=== PATIENT | female | born 1955 | race Caucasian/White ===

== ENCOUNTER 2017-03-01 14:31 | Emergency (ER) | payer BC ==
[~2017-03-01 14:31] MED LIST: ALBU18HF IH; FERR325T72 PO; FEXO60TA25 PO; GLIM4TAB PO; METF850T2 PO; MULT-496 PO; OLME1TAB23 PO; PANT40TA3 PO; THYR60TA PO; ZAFI20TA11 PO
[2017-03-01] MEDS ORDERED: HYDROcodone/APAP 5/325MG 1 TAB TABLET PO ONE (15:15)
[2017-03-01] MEDS ORDERED: ONDANSETRON ODT 4 MG TAB.RAPDIS PO ONE (15:15)
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
[2017-03-01] MEDS ORDERED: CYCL-331 PO (15:47)
[2017-03-01] MEDS ORDERED: HYDR-971 PO (15:47)
[2017-03-01 16:16] VITALS: BP 112/71
== END 2017-03-01 16:17 | disposition home or self-care (01) ==
LOC: ER 14:31
DX: S39.012A Strain of muscle, fascia and tendon of lower back, initial encounter (principal); S29.012A Strain of muscle and tendon of back wall of thorax, initial encounter; E11.9 Type 2 diabetes mellitus without complications; I10 Essential (primary) hypertension; Z88.8 Allergy status to other drugs, medicaments and biological substances; Z91.040 Latex allergy status; Z90.49 Acquired absence of other specified parts of digestive tract; V49.9XXA Car occupant (driver) (passenger) injured in unspecified traffic accident, initial encounter; Y93.89 Activity, other specified; Y99.8 Other external cause status; Y92.488 Other paved roadways as the place of occurrence of the external cause
CPT/HCPCS: 72072; 72100; 99284; Q0162

== ENCOUNTER 2018-07-25 22:27 | Inpatient (IN) | payer BC ==
[~2018-07-25] VITALS: Ht 160 cm; Wt 102.2 kg
[~2018-07-25 22:27] MED LIST changes: -ALBU18HF IH; +ALBU2.5V8 IH; +CYCL-331 PO; +HYDR-3165 PO; -METF850T2 PO; +METF850T8 PO
--- NOTE | 2018-07-25 22:38 | ED.ADGEN ---
Past History Past Medical History: Anxiety, Bronchitis, Diabetes, Hypertension, Kidney Stones Past Surgical History: Cholecystectomy, Other Alcohol Use: Occasionally Drug Use: None Adult General Chief Complaint Chief Complaint ".. I ve been sick with a cold since Monday.....coughing.. but I got this bad pain in my Lt flank like a kidney stone..." HPI HPI Patient is a 62 year old female who presents with above hx and complaints fever, chills, cough and Lt flank pain. Has increased pain left lower chest and left flank with coughing and deep breaths Pt. complaints of upper respiratory infection starting Monday night. Patient has been coughing with some production of sputum. No recent travel. No trauma. No specific ill contacts. No history immunosuppression. Patient does have a history of hypertension , diabetes and renal stones. She normally follows with Dr. Carrillo Review of Systems Review of Systems Constitutional: Hx. fever or chills [] Eyes: Denies change in visual acuity, redness, or eye pain [] HENT: History of nasal congestion and sore throat [] Respiratory: Hx cough or shortness of breath [] Cardiovascular: No additional information not addressed in HPI [] GI: Denies abdominal pain, nausea, vomiting, bloody stools or diarrhea [] : Denies dysuria or hematuria [] Musculoskeletal: Denies joint pain []Lt. Flank pain. Integument: Denies rash or skin lesions [] Neurologic: Denies headache, focal weakness or sensory changes [] Endocrine: Denies polyuria or polydipsia [] All other systems were reviewed and found to be within normal limits, except as documented in this note. Family History Family History Non - contributory Current Medications Current Medications Current Medications Medications (Trade) Dose Ordered Sig/Kelton Start Time Stop Time Status Last Admin Dose Admin Albuterol/ Ipratropium (Duoneb) 3 ml 1X ONCE 07/25/18 22:45 07/25/18 22:50 DC 07/25/18 23:12 3 ML Aspirin (Children'S Aspirin) 324 mg 1X ONCE 07/25/18 22:45 07/25/18 22:49 DC 07/25/18 23:08 324 MG Azithromycin (Zithromax) 500 mg 1X ONCE 07/25/18 22:45 07/25/18 22:49 DC 07/25/18 23:09 500 MG Ceftriaxone Sodium 1 gm/ Sodium Chloride 50 ml @ 100 mls/hr 1X ONCE 07/25/18 22:45 07/25/18 23:14 DC 07/25/18 23:07 100 MLS/HR Ceftriaxone Sodium (Rocephin) 1 gm STK-MED ONCE 07/25/18 23:03 07/25/18 23:04 DC Hydrocodone Bitartrate/ Ibuprofen (Vicoprofen 7.5-200) 2 tab 1X ONCE 07/25/18 23:00 07/25/18 23:01 DC 07/25/18 23:08 2 TAB Lactated Ringer's 1,000 ml @ 1,000 mls/hr Q1H 07/25/18 22:43 07/25/18 23:42 DC 07/25/18 23:08 1,000 MLS/HR Sodium Chloride 50 ml @ As Directed STK-MED ONCE 07/25/18 23:02 07/25/18 23:03 DC See Nursing for home meds Allergies Allergies Allergies Coded Allergies Type Severity Reaction Last Updated Verified latex Allergy Severe Rash 10/17/13 Yes fentanyl Allergy Intermediate 10/17/13 Yes sulfamethoxazole Allergy Unknown 07/25/18 Yes trimethoprim Allergy Unknown 07/25/18 Yes Physical Exam Physical Exam Constitutional: Moderate acute distress, non-toxic appearance. [] HENT: Normocephalic, atraumatic, bilateral external ears normal, oropharynx mois t, no oral exudates, nose swollen turbinates clear rhinorrhea Eyes: PERRLA, EOMI, conjunctiva normal, no discharge. Glasses. Neck: Normal range of motion, no tenderness, supple, no stridor. [] Cardiovascular: Tachycardia Heart rate regular rhythm, no murmur ,PMI to Lt. Lungs & Thorax: Bilateral breath sounds equal apexes with rhonchi on Lt. base with auscultation [] Abdomen: Bowel sounds normal, soft, no tenderness, no masses, no pulsatile masses. Obese. Old surgery scars. Skin: Warm, dry, no erythema, no rash. [] Back: No tenderness, Lt. CVA tenderness. [] Extremities: No tenderness, no cyanosis, no clubbing, ROM intact, ankle edema. [] Neurologic: Alert and oriented X 3, normal motor function, normal sensory function, no focal deficits noted. [] Psychologic: Affect anxious, judgement normal, mood normal. [] Current Patient Data Vital Signs Vital Signs Date Time Temp Pulse Resp B/P (MAP) Pulse Ox O2 Delivery O2 Flow Rate FiO2 07/25/18 22:35 103.1 116 20 96 Room Air Lab Results Laboratory Tests Test 07/25/18 22:36 07/25/18 22:54 07/25/18 23:35 Urine Collection Type Unknown Urine Color Yellow Urine Clarity Hazy Urine pH 5.5 Urine Specific Leonore 1.020 Urine Protein Neg (NEG-TRACE) Urine Glucose (UA) Neg mg/dL (NEG) Urine Ketones (Stick) Neg mg/dL (NEG) Urine Blood Neg (NEG) Urine Nitrite Neg (NEG) Urine Bilirubin Neg (NEG) Urine Urobilinogen Dipstick 0.2 mg/dL (0.2 mg/dL) Urine Leukocyte Esterase Small (NEG) Urine RBC 0 /HPF (0-2) Urine WBC 5-10 /HPF (0-4) Urine Squamous Epithelial Cells Occ /LPF Urine Bacteria Few /HPF (0-FEW) White Blood Count 8.2 x10^3/uL (4.0-11.0) Red Blood Count 4.06 x10^6/uL (3.50-5.40) Hemoglobin 11.1 g/dL (12.0-15.5) L Hematocrit 33.8 % (36.0-47.0) L Mean Corpuscular Volume 83 fL (79-100) Mean Corpuscular Hemoglobin 27 pg (25-35) Mean Corpuscular Hemoglobin Concent 33 g/dL (31-37) Red Cell Distribution Width 15.1 % (11.5-14.5) H Platelet Count 213 x10^3/uL (140-400) Neutrophils (%) (Auto) 76 % (31-73) H Lymphocytes (%) (Auto) 14 % (24-48) L Monocytes (%) (Auto) 8 % (0-9) Eosinophils (%) (Auto) 2 % (0-3) Basophils (%) (Auto) 1 % (0-3) Neutrophils # (Auto) 6.2 x10^3uL (1.8-7.7) Lymphocytes # (Auto) 1.1 x10^3/uL (1.0-4.8) Monocytes # (Auto) 0.6 x10^3/uL (0.0-1.1) Eosinophils # (Auto) 0.2 x10^3/uL (0.0-0.7) Basophils # (Auto) 0.1 x10^3/uL (0.0-0.2) Erythrocyte Sedimentation Rate 65 (0-25) H Prothrombin Time 10.0 SEC (9.4-11.4) Prothrombin Time INR 1.0 (0.9-1.1) PTT 26 SEC (23-33) D-Dimer (Gabby) 1.06 mg/L (0.00-0.50) H Sodium Level 136 mmol/L (136-145) Potassium Level 3.6 mmol/L (3.5-5.1) Chloride Level 99 mmol/L (98-107) Carbon Dioxide Level 24 mmol/L (21-32) Anion Gap 13 (6-14) Blood Urea Nitrogen 14 mg/dL (7-20) Creatinine 1.0 mg/dL (0.6-1.0) Estimated GFR (Cockcroft-Gault) 56.0 Glucose Level 194 mg/dL (70-99) H Lactic Acid Level 2.0 mmol/L (0.4-2.0) Calcium Level 9.5 mg/dL (8.5-10.1) Magnesium Level 1.6 mg/dL (1.8-2.4) L Total Bilirubin 0.5 mg/dL (0.2-1.0) Direct Bilirubin 0.2 mg/dL (0.0-0.2) Aspartate Amino Transferase (AST) 29 U/L (15-37) Alanine Aminotransferase (ALT) 49 U/L (14-59) Alkaline Phosphatase 129 U/L (46-116) H Creatine Kinase 73 U/L (26-192) Troponin I Quantitative < 0.017 ng/mL (0-0.055) YL-Swe-O-Type Natriuretic Peptide 80 pg/mL (0-124) Total Protein 7.9 g/dL (6.4-8.2) Albumin 3.7 g/dL (3.4-5.0) Lipase 292 U/L (73-393) Influenza Type A (Rapid) Negative (NEGATIVE) Influenza Type B (Rapid) Negative (NEGATIVE) EKG EKG My interpretation of chest x-ray shows[] Radiology/Procedures Radiology/Procedures My interpretation of chest x-ray shows basilar atelectasis. There may be some bronchograms in left lower. I interpretation CT shows no obvious central pulmonary embolism. Does have infiltrate left lower lung field. See formal report when available Course & Med Decision Making Course & Med Decision Making Pertinent Labs and Imaging studies reviewed. (See chart for details) Patient admitted to for further eval. and tx. [] Final Impression Final Impression 1. Cough[]-Bronchitis 2. Fever 3. Pneumonia-Lt. lower lobe 4. Chest Pain 5. Anemia 11.1 Hgb 6. DM 194 glu 7. Elev. ESR 65 8. Elev. D-dimer 1.06 9. Hypomagnesium 1.6 10.UTI Dragon Disclaimer Dragon Disclaimer This electronic medical record was generated, in whole or in part, using a voice recognition dictation system. Discharge Summary Visit Information Final Diagnosis Problems Medical Problems: (1) Pneumonia Status: Acute Brief Hospital Course Allergies Allergies Coded Allergies Type Severity Reaction Last Updated Verified latex Allergy Severe Rash 10/17/13 Yes fentanyl Allergy Intermediate 10/17/13 Yes sulfamethoxazole Allergy Unknown 07/25/18 Yes trimethoprim Allergy Unknown 07/25/18 Yes Vital Signs Vital Signs Date Time Temp Pulse Resp B/P (MAP) Pulse Ox O2 Delivery O2 Flow Rate FiO2 07/25/18 22:35 103.1 116 20 96 Room Air Lab Results Laboratory Tests Test 07/25/18 22:36 07/25/18 22:54 07/25/18 23:35 Urine Collection Type Unknown Urine Color Yellow Urine Clarity Hazy Urine pH 5.5 Urine Specific Leonore 1.020 Urine Protein Neg (NEG-TRACE) Urine Glucose (UA) Neg mg/dL (NEG) Urine Ketones (Stick) Neg mg/dL (NEG) Urine Blood Neg (NEG) Urine Nitrite Neg (NEG) Urine Bilirubin Neg (NEG) Urine Urobilinogen Dipstick 0.2 mg/dL (0.2 mg/dL) Urine Leukocyte Esterase Small (NEG) Urine RBC 0 /HPF (0-2) Urine WBC 5-10 /HPF (0-4) Urine Squamous Epithelial Cells Occ /LPF Urine Bacteria Few /HPF (0-FEW) White Blood Count 8.2 x10^3/uL (4.0-11.0) Red Blood Count 4.06 x10^6/uL (3.50-5.40) Hemoglobin 11.1 g/dL (12.0-15.5) Hematocrit 33.8 % (36.0-47.0) Mean Corpuscular Volume 83 fL (79-100) Mean Corpuscular Hemoglobin 27 pg (25-35) Mean Corpuscular Hemoglobin Concent 33 g/dL (31-37) Red Cell Distribution Width 15.1 % (11.5-14.5) Platelet Count 213 x10^3/uL (140-400) Neutrophils (%) (Auto) 76 % (31-73) Lymphocytes (%) (Auto) 14 % (24-48) Monocytes (%) (Auto) 8 % (0-9) Eosinophils (%) (Auto) 2 % (0-3) Basophils (%) (Auto) 1 % (0-3) Neutrophils # (Auto) 6.2 x10^3uL (1.8-7.7) Lymphocytes # (Auto) 1.1 x10^3/uL (1.0-4.8) Monocytes # (Auto) 0.6 x10^3/uL (0.0-1.1) Eosinophils # (Auto) 0.2 x10^3/uL (0.0-0.7) Basophils # (Auto) 0.1 x10^3/uL (0.0-0.2) Erythrocyte Sedimentation Rate 65 (0-25) Prothrombin Time 10.0 SEC (9.4-11.4) Prothromb Time International Ratio 1.0 (0.9-1.1) Activated Partial Thromboplast Time 26 SEC (23-33) D-Dimer (Gabby) 1.06 mg/L (0.00-0.50) Sodium Level 136 mmol/L (136-145) Potassium Level 3.6 mmol/L (3.5-5.1) Chloride Level 99 mmol/L (98-107) Carbon Dioxide Level 24 mmol/L (21-32) Anion Gap 13 (6-14) Blood Urea Nitrogen 14 mg/dL (7-20) Creatinine 1.0 mg/dL (0.6-1.0) Estimated GFR (Cockcroft-Gault) 56.0 Glucose Level 194 mg/dL (70-99) Lactic Acid Level 2.0 mmol/L (0.4-2.0) Calcium Level 9.5 mg/dL (8.5-10.1) Magnesium Level 1.6 mg/dL (1.8-2.4) Total Bilirubin 0.5 mg/dL (0.2-1.0) Direct Bilirubin 0.2 mg/dL (0.0-0.2) Aspartate Amino Transf (AST/SGOT) 29 U/L (15-37) Alanine Aminotransferase (ALT/SGPT) 49 U/L (14-59) Alkaline Phosphatase 129 U/L (46-116) Creatine Kinase 73 U/L (26-192) Troponin I Quantitative < 0.017 ng/mL (0-0.055) MW-Sqb-R-Type Natriuretic Peptide 80 pg/mL (0-124) Total Protein 7.9 g/dL (6.4-8.2) Albumin 3.7 g/dL (3.4-5.0) Lipase 292 U/L (73-393) Influenza Type A (Rapid) Negative (NEGATIVE) Influenza Type B (Rapid) Negative (NEGATIVE) Brief Hospital Course Ms. Meredith is a 62 old female who presented with Lt. Lower Pneumonia. Admitted Dr. Celestin. Discharge Information Condition at Discharge: Improved, Stable Dischare Medications Current Medications Aspirin (Children'S Aspirin) 324 mg 1X ONCE PO Last administered on 07/25/18at 23:08; Admin Dose 324 MG; Start 07/25/18 at 22:45; Stop 07/25/18 at 22:49; Status DC Lactated Ringer's 1,000 ml @ 1,000 mls/hr Q1H IV Last administered on 07/25/18at 23:08; Admin Dose 1,000 MLS/HR; Start 07/25/18 at 22:43; Stop 07/25/18 at 23:42; Status DC Ceftriaxone Sodium 1 gm/ Sodium Chloride 50 ml @ 100 mls/hr 1X ONCE IV Last administered on 07/25/18at 23:07; Admin Dose 100 MLS/HR; Start 07/25/18 at 22:45; Stop 07/25/18 at 23:14; Status DC Azithromycin (Zithromax) 500 mg 1X ONCE PO Last administered on 07/25/18at 23:09; Admin Dose 500 MG; Start 07/25/18 at 22:45; Stop 07/25/18 at 22:49; Status DC Albuterol/ Ipratropium (Duoneb) 3 ml 1X ONCE NEB Last administered on 07/25/18at 23:12; Admin Dose 3 ML; Start 07/25/18 at 22:45; Stop 07/25/18 at 22:50; Status DC Hydrocodone Bitartrate/ Ibuprofen (Vicoprofen 7.5-200) 2 tab 1X ONCE PO Last administered on 07/25/18at 23:08; Admin Dose 2 TAB; Start 07/25/18 at 23:00; Stop 07/25/18 at 23:01; Status DC Sodium Chloride 50 ml @ As Directed STK-MED ONCE .ROUTE ; Start 07/25/18 at 23:02; Stop 07/25/18 at 23:03; Status DC Ceftriaxone Sodium (Rocephin) 1 gm STK-MED ONCE .ROUTE ; Start 07/25/18 at 23:03; Stop 07/25/18 at 23:04; Status DC Active Scripts Active Cyclobenzaprine Hcl 10 Mg Tablet 1 Tab PO TID [place] 5-325 Tablet (Hydrocodone Bit/Acetaminophen) 1 Each Tablet 1 Tab PO PRN Q6HRS PRN Reported Daily Value (Multivitamin) 1 Each Tablet 1 Each PO Amaryl (Glimepiride) 4 Mg Tablet 1 Tab PO BID Feosol (Ferrous Sulfate) 325 Mg Tablet 325 Mg PO Ventolin Hfa Inhaler (Albuterol Sulfate) 18 Gm Hfa.aer.ad 2 Puff IH PRN Q4-6HRS [place] Allergy (Fexofenadine Hcl) 60 Mg Tablet 60 Mg PO Accolate (Zafirlukast) 20 Mg Tablet 20 Mg PO [place] Thyroid (Thyroid,Pork) 60 Mg Tablet 1 Tab PO DAILY Protonix (Pantoprazole Sodium) 40 Mg Tablet.dr 1 Tab PO DAILY Benicar Hct 40-12.5 Mg Tablet (Olmesartan/Hydrochlorothiazide) 1 Each Tablet 1 Tab PO DAILY Metformin Hcl 850 Mg Tablet 1 Tab PO BID Oral Disclaimer This chart was dictated in whole or in part using Voice Recognition software in a busy, high-work load, and often noisy Emergency Department environment. It may contain unintended and wholly unrecognized errors or omissions. MAMI LIMA MD July 25, 2018 22:38
[2018-07-25] MEDS ORDERED: IV RINGERS SOLUTION,LACTATED 1,000 ML IV SCH (22:43)
[2018-07-25] MEDS ORDERED: IPRATRPIUM/ALBUTEROL 0.5/2.5MG 3 ML NEBU. NEB ONE (22:45)
[2018-07-25] MEDS ORDERED: AZITHROMYCIN 250 MG TABLET. PO ONE (22:45)
[2018-07-25] MEDS ORDERED: ASPIRIN 81 MG TAB.CHEW PO ONE (22:45)
[2018-07-25] MEDS ORDERED: HYDROcodon/IBUPROFEN 7.5/200MG 1 TAB TABLET PO ONE (23:00)
[2018-07-25] MEDS ORDERED: IV NORMAL SALINE 50ML 50 ML ONE (23:02)
[2018-07-25] MEDS ORDERED: cefTRIAXone SODIUM 1 GM VIAL ONE (23:03)
[2018-07-25 23:16] LABS: BACTERIA,URINE FEW /HPF (0-FEW); BILIRUBIN,URINE NEG (NEG); CLARITY,URINE HAZY; COLOR,URINE YELLOW; GLUCOSE,URINE NEG (NEG); NITRITE,URINE NEG (NEG); RBC,URINE 0 /HPF (0-2); UROBILINOGEN,URINE 0.2 mg/dL (0.2 mg/dL)
[2018-07-25 23:17] LABS: SQUAMOUS EPITHELIAL CELL,UR OCC /LPF
[2018-07-25 23:18] LABS: BASO # 0.1 x10^3/uL (0.0-0.2); BASO % 1 % (0-3); EOS # 0.2 x10^3/uL (0.0-0.7); EOS % 2 % (0-3); HEMATOCRIT 33.8 % (36.0-47.0); HEMOGLOBIN 11.1 g/dL (12.0-15.5); LYMPH # 1.1 x10^3/uL (1.0-4.8); LYMPH % 14 % (24-48); MEAN CORPUSCULAR HEMOGLOBIN 27 pg (25-35); MEAN CORPUSCULAR HGB CONC 33 g/dL (31-37); MEAN CORPUSCULAR VOLUME 83 fL (79-100); MONO # 0.6 x10^3/uL (0.0-1.1); MONO % 8 % (0-9); NEUT # 6.2 x10^3uL (1.8-7.7); NEUT % 76 % (31-73); PLATELET COUNT 213 x10^3/uL (140-400); RED BLOOD COUNT 4.06 x10^6/uL (3.50-5.40); RED CELL DISTRIBUTION WIDTH 15.1 % (11.5-14.5); WHITE BLOOD COUNT 8.2 x10^3/uL (4.0-11.0)
--- NOTE | 2018-07-25 23:28 | EKG ---
[address] [address] Test Date: 2018-07-25 Test Time: 23:06:10 Pat Name: NASEEM OSULLIVAN Department: Room: Gender: F Group President: : 1955 Requested By: MAMI LIMA Order Number: [id number] Reading MD: Measurements Intervals Randall Rate: 104 P: -56 AK: 156 QRS: 17 QRSD: 80 T: 26 QT: 322 QTc: 424 Interpretive Statements SINUS TACHYCARDIA NO SPECIFIC ECG ABNORMALITIES RI6.01 No previous ECG available for comparison
[2018-07-25 23:39] LABS: ALBUMIN 3.7 g/dL (3.4-5.0); CALCIUM 9.5 mg/dL (8.5-10.1); DIRECT BILIRUBIN 0.2 mg/dL (0.0-0.2); MAGNESIUM 1.6 mg/dL (1.8-2.4); POTASSIUM 3.6 mmol/L (3.5-5.1); TOTAL BILIRUBIN 0.5 mg/dL (0.2-1.0); TOTAL PROTEIN 7.9 g/dL (6.4-8.2)
--- NOTE | 2018-07-26 00:06 | RAD ---
PA and lateral chest. HISTORY: Chest pain, short of breath PA and lateral views were taken of the chest. Heart is normal in size. There is no pleural effusion. Mediastinum is mildly widened, similar to an old study. There are no confluent infiltrates. IMPRESSION: 1. No acute infiltrates. Electronically signed by: Bennett Headley MD (07/26/2018 12:03 AM) [id number]
[2018-07-26 00:15] LABS: INFLUENZA A PATIENT NEGATIVE (NEGATIVE); INFLUENZA B PATIENT NEGATIVE (NEGATIVE)
[2018-07-26] MEDS ORDERED: CONTRAST GIVEN MC PRN (00:45)
[2018-07-26] MEDS ORDERED: IOHEXOL 350 MG/ML 100 ML VIAL. IV ONE (01:00)
[2018-07-26] MEDS ORDERED: KETOROLAC 15 MG/ML VIAL. IV PRN (01:00)
[2018-07-26] MEDS ORDERED: MORPHINE SULFATE 10 MG/ML SYRINGE. SQ PRN (01:00)
[2018-07-26] MEDS ORDERED: ENOXAPARIN ** NOTE DOSE ** SYRINGE SQ ONE (01:00)
[2018-07-26] MEDS ORDERED: ONDANSETRON PF 4 MG/2 ML VIAL. IV PRN (01:00)
--- NOTE | 2018-07-26 01:27 | RAD ---
CT arteriogram of the chest. HISTORY: Dyspnea, elevated d-dimer CT arteriogram of the chest was done using 100 mL Omnipaque 350 contrast. Sagittal and coronal MIP images were reconstructed. Thyroid is homogeneous. Mediastinal lymph nodes are within normal limits in size. There is no pleural effusion. There is fatty change in the liver without a focal liver lesion. Adrenal glands are normal. There are diffuse groundglass infiltrates likely atelectasis from poor inspiration but edema or pneumonia are possible. There is more focal infiltrate in the medial left lower lobe which suggests pneumonia. There is peribronchial thickening in the left lower lobe. Contrast opacification the pulmonary vessels is not optimal. There is no definite pulmonary embolus. Respiratory motion also creates artifact in the lung bases. IMPRESSION: 1. Left lower lobe infiltrate suggesting pneumonia. 2. Somewhat limited study but no definite pulmonary embolus. 3. Poor inspiration with hazy atelectasis or edema throughout both lungs. PQRS Compliance Statement: One or more of the following individualized dose reduction techniques were utilized for this examination: 1. Automated exposure control 2. Adjustment of the mA and/or kV according to patient size 3. Use of iterative reconstruction technique Electronically signed by: Bennett Headley MD (07/26/2018 1:24 AM) [facility]
[2018-07-26] MEDS ORDERED: MAGNESIUM SULFATE 2GM 50 ML IV ONE (01:30)
[2018-07-26] MEDS: IV RINGERS SOLUTION,LACTATED 1,000 ML IV SCH ×4 (01:31→22:28)
[2018-07-26 02:38] VITALS: BP 146/84
[2018-07-26] MEDS ORDERED: ANTI-COAG MONITOR BY PHARMACY. MC PRN (04:30)
[2018-07-26] MEDS: ACETAMINOPHEN 325 MG TABLET PO PRN ×3 (04:51→22:27)
[2018-07-26 05:02] VITALS: BP 110/63
[2018-07-26] MEDS: IPRATRPIUM/ALBUTEROL 0.5/2.5MG 3 ML NEBU. NEB SCH ×5 (06:54→20:09)
[2018-07-26] MEDS ORDERED: ALBUTEROL SULFATE 2.5 MG/3 ML NEBU. IH PRN (07:30)
[2018-07-26] MEDS ORDERED: DEXTROSE 50% 25 GM / 50ML DISP.SYRIN. IV PRN (07:30)
[2018-07-26] MEDS: LORazepam 1 MG TABLET PO PRN (08:02)
[2018-07-26] MEDS: MORPHINE SULFATE 4 MG/ML DISP.SYRIN. IV PRN ×3 (08:02→21:42)
[2018-07-26] MEDS: PANTOPRAZOLE 40 MG TABLET. PO SCH (08:06)
[2018-07-26] MEDS ORDERED: CYCLOBENZAPRINE 10 MG TABLET. PO SCH (09:00)
[2018-07-26] MEDS ORDERED: OLMESARTAN PO SCH (09:00)
[2018-07-26] MEDS ORDERED: [UNRECOGNIZED DRUG - OTHER] PO SCH (09:00)
[2018-07-26] MEDS ORDERED: HYDROCHLOROTHIAZIDE PO SCH (09:00)
[2018-07-26] MEDS ORDERED: ENOXAPARIN ** NOTE DOSE ** SYRINGE SQ SCH (09:00)
[2018-07-26] MEDS ORDERED: CYCL-331 PO (10:28)
[2018-07-26] MEDS ORDERED: CYCLOBENZAPRINE 10 MG TABLET. PO PRN (10:30)
[2018-07-26 10:38] VITALS: BP 124/74
[2018-07-26] MEDS ORDERED: SITA1TBM4 PO (11:47)
[2018-07-26] MEDS: THYROID,PORK 60 MG TABLET PO SCH (12:31)
[2018-07-26] MEDS: LACTOBACILLUS RHAMNOSUS GG 1 CAPSULE. PO SCH ×2 (12:31→21:27)
[2018-07-26] MEDS: LOSARTAN 50 MG TABLET. PO SCH (12:31)
[2018-07-26] MEDS: hydroCHLOROthiazide 12.5 MG CAPSULE PO SCH (12:31)
--- NOTE | 2018-07-26 13:21 | RAD ---
Bilateral lower extremity venous Doppler ultrasound History: Elevated d-dimer, edema. Comparison: None. Procedure: Color flow Doppler, Doppler spectral analysis, and 2D images are obtained with and without compression in the area of the common femoral vein, superficial femoral vein - femoral vein junction, main femoral vein (superficial femoral vein) and popliteal vein. Veins of the proximal calf are also imaged. Findings: There is normal color flow, augmentation, and compressibility of all visualized vein segments. No evidence of deep venous thrombus is present. IMPRESSION: No evidence of right or left lower extremity deep venous thrombosis. Electronically signed by: Evan Au MD (07/26/2018 1:18 PM) [id number]
[2018-07-26 15:08] VITALS: BP 157/76
--- NOTE | 2018-07-26 17:26 | HP ---
ADMIT DATE: 07/26/2018 HISTORY OF PRESENT ILLNESS: The patient is a 62-year-old female patient who came to the Emergency Room complaining of feeling sick and cold since last Monday. Had had recurrent bouts of cough with greenish sputum, fever, chest pain. She also complained of left flank pain, has increased pain in the left lower chest and left flank with coughing and deep breathing. All the symptoms started last Monday night, has been coughing with some productive sputum. No recent travel, no trauma, no specific ill contact. No history of immunosuppression. She does have history of hypertension, diabetes, and renal stones and normally follows with Dr. Carrillo at [facility]. She was extensively investigated in the Emergency Room and her lab work showed that her white cell count was normal, however her D-dimer was elevated at 1.06, so she had had a chest x-ray, which was unremarkable. CT angio of the chest showed that she has left lower lobe infiltrate suggesting pneumonia and had bilateral lower extremity venous Doppler ultrasound, which showed no evidence for right or left lower extremity deep vein thrombosis. The patient was admitted, was started on IV ceftriaxone and Zithromax for community-acquired pneumonia. She was also started on IV morphine and metoprolol as well as ondansetron. PAST MEDICAL HISTORY: Significant for hypertension, type 2 diabetes mellitus, hyperlipidemia, nephrolithiasis. She apparently has had stones about 5 times, the last one was about 8-9 years ago. She has chronic back pain, hypothyroidism, and osteoarthritis. PAST SURGICAL HISTORY: Significant for cholecystectomy, ovarian cyst removal, bladder sling, and tonsillectomy. ALLERGIES: SHE IS ALLERGIC TO FENTANYL, LATEX, AND SULFAMETHOXAZOLE, TRIMETHOPRIM. MEDICATIONS: She is currently on the following medications: She is on fexofenadine for Amparo 60 mg at bedtime; albuterol sulfate 2 puffs every 4-6 hours; cyclobenzaprine 10 mg 3 times a day; ferrous sulfate 325 mg every Monday, Monday, Monday; olmesartan/hydrochlorothiazide for Benicar 1 tablet once a day; Accolate 20 mg twice a day; Protonix 40 mg daily. She is on sitagliptin and metformin for Janumet XR once a day, thyroid pork 60 mg daily, and multivitamin 1 tablet once a day. FAMILY HISTORY: She apparently has 4 brothers, one older brother has CVA and throat cancer. The other 3 have coronary artery bypass graft surgery. Her father at age of 64 because of myocardial infarction. He had first heart attack when he was 46. He had had coronary artery bypass graft surgery and also stents because of peripheral vascular disease. Her mother at age of 66 because of congestive heart failure. SOCIAL HISTORY: She is for the second time. She has 1 daughter. She never smoked. Drinks alcohol very occasionally. Does not use any drugs. She is retired and now she has a part-time job as a bank boss. PHYSICAL EXAMINATION: VITAL SIGNS: On arrival to the Emergency Room, the patient was clearly tachycardic, febrile. Her heart rate was 116, blood pressure was 129/79, temperature was 103.1, respiratory rate was 20, and oxygen saturation was 96% on room air. HEAD, EYES, EARS, NOSE, AND THROAT: Showed normocephalic, atraumatic. NECK: Supple. HEART: Showed normal first and second heart sounds. No gallop, rub, or murmur. CHEST: Showed central trachea, equal bilateral expansion, air entry. Vesicular breath sounds with crepitation mostly on the left side posteriorly. I could not appreciate any rhonchi. ABDOMEN: Distended, soft, nontender. NEUROLOGIC: She was awake, alert, responding appropriately. All her cranial nerves intact. Her voice was consistent with somebody with hypothyroidism. EXTREMITIES: She moved all extremities without difficulty. LABORATORY DATA: Her lab work showed her prothrombin time was 10, INR of 1, aPTT was 26, and D-dimer was high at 1.06. White cell count was 8200, hemoglobin 11, hematocrit 33, MCV 83, and platelet count 213,000 with normal manual differential. Her chemistry showed serum sodium 136, potassium 3.6, chloride 99, bicarbonate 24, anion gap of 13, BUN 14, creatinine 1, estimated GFR was 56 mL per minute. Her glucose was 194. Lactic acid was 2. Calcium was 9.5, magnesium was 1.6. Total bilirubin, AST, ALT were normal. Alkaline phosphatase slightly elevated. CK was only 73 and beta natriuretic peptide was 80. Total protein was 7.9, albumin was 3.7. Her lipase was 291. Her TSH was 0.923. She actually had 3 sets of cardiac enzymes that all ruled out myocardial infarction. Her urinalysis was essentially unremarkable and her influenza A and B were negative. Her chest x-ray showed no acute infiltrate, however CT scan of the chest with PE protocol showed that the patient has left lower lobe infiltrate suggesting pneumonia, somewhat limited study, but no definite pulmonary emboli, poor inspiration with hazy atelectasis and/or edema throughout both lungs. She has had bilateral lower extremity ____, showed no evidence of right or left lower extremity deep vein thrombosis. ASSESSMENT AND PLAN: In summary, this is a 62-year-old female patient who was admitted with recurrent bouts of cough with greenish sputum, left-sided chest pain, fever, and chills and was diagnosed with community-acquired pneumonia. She has multiple other medical problems including hypertension, type 2 diabetes, hyperlipidemia, chronic back pain, hypothyroidism, and osteoarthritis as well as history of nephrolithiasis and is to resume all her medications and she was started also on ceftriaxone as well as Zithromax. We will also continue with Lovenox for deep venous thrombosis prophylaxis and continue with all her other medications. EMMY LEDESMA MD DR: DAMASO/howie JOB#: [id number] / [id number]
[2018-07-26] MEDS: MULTIVITAMIN with MINERAL TABLET. PO SCH (18:14)
[2018-07-26 19:38] VITALS: BP 143/75
[2018-07-26] MEDS: MONTELUKAST 10 MG TABLET. PO SCH (21:27)
[2018-07-26] MEDS: ENOXAPARIN 40 MG/0.4 ML SYRINGE. SQ SCH (21:27)
[2018-07-26] MEDS: CETIRIZINE HCL 10 MG TABLET PO SCH (21:27)
[2018-07-26] MEDS: AZITHROMYCIN 250 MG TABLET. PO SCH (21:27)
[2018-07-26 22:14] VITALS: BP 130/68
[2018-07-27] MEDS: ACETAMINOPHEN 325 MG TABLET PO PRN ×3 (05:15→17:07)
[2018-07-27 05:19] VITALS: BP 147/75
[2018-07-27] MEDS: IPRATRPIUM/ALBUTEROL 0.5/2.5MG 3 ML NEBU. NEB SCH ×3 (06:05→20:05)
[2018-07-27 06:36] LABS: CALCIUM 9.2 mg/dL (8.5-10.1); CREATININE 0.8 mg/dL (0.6-1.0); GFR 72.4; POTASSIUM 3.3 mmol/L (3.5-5.1)
[2018-07-27 06:37] LABS: BASO % 0 % (0-3); EOS # 0.1 x10^3/uL (0.0-0.7); EOS % 1 % (0-3); HEMATOCRIT 28.3 % (36.0-47.0); HEMOGLOBIN 9.3 g/dL (12.0-15.5); LYMPH # 0.9 x10^3/uL (1.0-4.8); LYMPH % 12 % (24-48); MEAN CORPUSCULAR HEMOGLOBIN 27 pg (25-35); MEAN CORPUSCULAR HGB CONC 33 g/dL (31-37); MEAN CORPUSCULAR VOLUME 83 fL (79-100); MONO # 0.6 x10^3/uL (0.0-1.1); MONO % 8 % (0-9); NEUT # 5.8 x10^3uL (1.8-7.7); NEUT % 79 % (31-73); PLATELET COUNT 151 x10^3/uL (140-400); RED BLOOD COUNT 3.41 x10^6/uL (3.50-5.40); RED CELL DISTRIBUTION WIDTH 14.6 % (11.5-14.5); WHITE BLOOD COUNT 7.3 x10^3/uL (4.0-11.0)
[2018-07-27] MEDS: IV RINGERS SOLUTION,LACTATED 1,000 ML IV SCH ×2 (07:48→21:53)
[2018-07-27] MEDS: THYROID,PORK 60 MG TABLET PO SCH (07:48)
[2018-07-27] MEDS: PANTOPRAZOLE 40 MG TABLET. PO SCH (07:48)
[2018-07-27] MEDS: LOSARTAN 50 MG TABLET. PO SCH (07:49)
[2018-07-27] MEDS: ENOXAPARIN 40 MG/0.4 ML SYRINGE. SQ SCH ×2 (07:49→20:27)
[2018-07-27] MEDS: FERROUS SULFATE 325 MG TABLET. PO SCH ×2 (07:49→07:52)
[2018-07-27] MEDS: hydroCHLOROthiazide 12.5 MG CAPSULE PO SCH (07:49)
[2018-07-27] MEDS: LACTOBACILLUS RHAMNOSUS GG 1 CAPSULE. PO SCH ×2 (07:49→20:26)
[2018-07-27 10:49] VITALS: BP 141/75
[2018-07-27] MEDS ORDERED: DEXTROSE 50% 25 GM / 50ML DISP.SYRIN. IV PRN (12:45)
[2018-07-27] MEDS ORDERED: POTASSIUM CHLORIDE 20 MEQ TABLET.ER. PO ONE (12:45)
[2018-07-27] MEDS ORDERED: BENZOCAINE/MENTHOL LOZNGE 18'S BOX. PO PRN (14:15)
[2018-07-27] MEDS: BENZONATATE 100 MG CAPSULE. PO SCH ×2 (14:18→20:26)
[2018-07-27 15:02] VITALS: BP 151/73
--- NOTE | 2018-07-27 15:07 | RAD ---
EXAM: Abdomen and pelvis CT without intravenous contrast. HISTORY: Left flank pain. TECHNIQUE: Computed tomographic images of the abdomen and pelvis were obtained without intravenous contrast. Multiplanar reformatting was performed. *One or more of the following individualized dose reduction techniques were utilized for this examination: 1. Automated exposure control. 2. Adjustment of the mA and/or kV according to patient size. 3. Use of iterative reconstruction technique. COMPARISON: Chest CT dated 07/26/2018. FINDINGS: Evaluation of the lower thorax demonstrates significant interval increase in partially consolidated left greater than right lower lobe infiltrate superimposed on groundglass and nodular infiltrate. There is no significant pleural effusion. The heart is upper normal in size to mildly enlarged. There is hepatomegaly and hepatic steatosis. The gallbladder is surgically absent. The pancreas is unremarkable. The spleen is mildly enlarged. The adrenal glands are unremarkable. There is no evidence of nephrolithiasis. There is nonspecific perinephric stranding. There may be a small cyst within the mid zone of the left kidney, difficult to assess given the absence of contrast and motion artifact. There is no hydronephrosis. The bladder is unremarkable. There is no appendicitis. There is no bowel wall thickening or abnormal bowel dilatation. There is sigmoid diverticulosis. There is a small calcification within the uterine fundus, possibly due to a degenerating fibroid no pathologically enlarged lymph node is seen. There is no suspicious osseous lesion. There is lumbar scoliosis and hyperlordosis. There is degenerative change throughout the lower lumbar spine. There is sacralization of the left L5 transverse process which articulates with the underlying sacrum, a normal variant. IMPRESSION: 1. Significant interval increase in partially consolidated left greater than right lower lobe pneumonia with superimposed groundglass and nodular infiltrate. Follow-up to confirm resolution. 2. Nonspecific perinephric stranding. There is no evidence of nephrolithiasis or hydronephrosis. 3. Possible small cyst within the left kidney, difficult to confirm in the absence of contrast and with motion artifact. 4. Sigmoid diverticulosis. 5. Hepatic steatosis and hepatomegaly. There is also mild splenomegaly. Electronically signed by: Sosa Oviedo MD (07/27/2018 3:05 PM) [place] [id number]
[2018-07-27] MEDS: IBUPROFEN 600 MG TABLET. PO PRN (15:10)
[2018-07-27 16:28] LABS: CALCIUM 9.6 mg/dL (8.5-10.1); POTASSIUM 3.8 mmol/L (3.5-5.1)
[2018-07-27] MEDS: INSULIN LISPRO 300 UNITS/3 ML INSULN.PEN. SQ SCH (17:00)
[2018-07-27] MEDS: MULTIVITAMIN with MINERAL TABLET. PO SCH (18:14)
[2018-07-27 19:28] VITALS: BP 136/73
[2018-07-27] MEDS: AZITHROMYCIN 250 MG TABLET. PO SCH (20:25)
[2018-07-27] MEDS: CETIRIZINE HCL 10 MG TABLET PO SCH (20:26)
[2018-07-27] MEDS: MONTELUKAST 10 MG TABLET. PO SCH (20:26)
[2018-07-27] MEDS: MORPHINE SULFATE 4 MG/ML DISP.SYRIN. IV PRN (21:57)
[2018-07-27 22:13] VITALS: BP 102/65
--- NOTE | 2018-07-27 22:16 | PN ---
DATE: 07/27/2018 SUBJECTIVE: The patient is sitting propped up in bed, eating her lunch comfortably. She continued to have cough that is productive of greenish sputum tinged with blood. Her left-sided flank pain is improving. She continues to have low-grade fever, although her temperature is trending down and generally feeling better. She said that she slept for a total of 6 hours overnight, the first time she did that for the last several days. PHYSICAL EXAMINATION: GENERAL: When I examined her, she looked pale, but no jaundice, cyanosis, or thyromegaly. No jugular venous distention. No limb edema. VITAL SIGNS: Her heart rate was 84, blood pressure was 141/75, temperature was 99.1, respiratory rate 20, and oxygen saturation was 95%. HEAD, EYES, EARS, NOSE AND THROAT: Normocephalic, atraumatic. NECK: Supple. HEART: Showed normal first and second heart sounds. No gallop, rub or murmur. CHEST: Clear to auscultation. No crepitation or rhonchi. ABDOMEN: Distended, soft, nontender. No guarding or rigidity. No organomegaly. All hernial orifices intact. Bowel sounds normal. NEUROLOGIC: She is more awake, alert, responding appropriately. All cranial nerves intact. He moves extremities without difficulty. Her intake over the last 24 hours was 3700 and output was 3075. LABORATORY DATA: As of this morning, her white cell count is 7300, hemoglobin 9.3, hematocrit 26, MCV 83 and platelet count of 151,000. Her chemistry showed a serum sodium 136, potassium 3.3, chloride 99, bicarbonate 26, anion gap of 9, BUN 8, creatinine 0.8, estimated GFR was 72 mL per minute. Her glucose was 180, calcium was 9.2. Influenza A and B were negative. The urine was negative except for small leukocyte esterase, 5-10 wbc's, and very few bacteria. ASSESSMENT: 1. Community-acquired pneumonia for which she is on IV ceftriaxone and oral Zithromax. 2. She has multiple other medical problems including: A. Hypertension. B. Type 2 diabetes. C. Hyperlipidemia. D. Chronic back pain. E. Hypothyroidism. F. Osteoarthritis. G. Nephrolithiasis. PLAN: She also complained of headache, so we will start her on ibuprofen 600 mg every 6 hours as needed with food. We will cover her with insulin sliding scale before meals while here. I will arrange for her to have a CT scan of the abdomen and pelvis without contrast. She has a history of stones in the left side. We will monitor her closely. For hypokalemia, we will replenish her potassium. EMMY LEDESMA MD DR: DAMASO/howie JOB#: [id number] / [id number]
[2018-07-28] MEDS: LORazepam 1 MG TABLET PO PRN (01:03)
[2018-07-28 05:48] VITALS: BP 141/84
[2018-07-28] MEDS: IPRATRPIUM/ALBUTEROL 0.5/2.5MG 3 ML NEBU. NEB SCH ×4 (05:54→19:56)
[2018-07-28] MEDS: IV RINGERS SOLUTION,LACTATED 1,000 ML IV SCH (06:13)
[2018-07-28 06:31] LABS: HEMATOCRIT 27.3 % (36.0-47.0); HEMOGLOBIN 8.9 g/dL (12.0-15.5); RED BLOOD COUNT 3.29 x10^6/uL (3.50-5.40); RED CELL DISTRIBUTION WIDTH 14.7 % (11.5-14.5); WHITE BLOOD COUNT 5.6 x10^3/uL (4.0-11.0)
[2018-07-28 07:00] LABS: ALBUMIN 2.6 g/dL (3.4-5.0); ALBUMIN/GLOBULIN RATIO 0.6 (1.0-1.7); CALCIUM 9.1 mg/dL (8.5-10.1); CREATININE 0.8 mg/dL (0.6-1.0); GFR 72.4; POTASSIUM 3.6 mmol/L (3.5-5.1); TOTAL BILIRUBIN 0.4 mg/dL (0.2-1.0); TOTAL PROTEIN 6.7 g/dL (6.4-8.2)
[2018-07-28] MEDS: INSULIN LISPRO 300 UNITS/3 ML INSULN.PEN. SQ SCH ×3 (07:33→17:10)
[2018-07-28] MEDS: BENZONATATE 100 MG CAPSULE. PO SCH ×3 (08:42→20:49)
[2018-07-28] MEDS: LOSARTAN 50 MG TABLET. PO SCH (08:42)
[2018-07-28] MEDS: hydroCHLOROthiazide 12.5 MG CAPSULE PO SCH (08:42)
[2018-07-28] MEDS: LACTOBACILLUS RHAMNOSUS GG 1 CAPSULE. PO SCH ×2 (08:42→20:48)
[2018-07-28] MEDS: PANTOPRAZOLE 40 MG TABLET. PO SCH (08:42)
[2018-07-28] MEDS: ENOXAPARIN 40 MG/0.4 ML SYRINGE. SQ SCH ×2 (08:42→20:51)
[2018-07-28] MEDS: FERROUS SULFATE 325 MG TABLET. PO SCH (08:42)
[2018-07-28] MEDS: THYROID,PORK 60 MG TABLET PO SCH (08:43)
[2018-07-28] MEDS: IBUPROFEN 600 MG TABLET. PO PRN ×2 (09:09→17:11)
[2018-07-28 10:42] VITALS: BP 137/69
--- NOTE | 2018-07-28 14:16 | PN ---
DATE: 07/28/2018 SUBJECTIVE: The patient is resting, slightly propped up, sleeping comfortably, in no apparent distress. She is feeling generally much better. The cough is much less and chest pain has largely subsided. We did a CT scan of the abdomen and pelvis, which basically showed that she has no stones or hydronephrosis. She has nonspecific perinephric stranding. She has significant interval increase in partially consolidated left greater than right lower lobe pneumonia with superimposed ground glass and nodular infiltrate. Followup to confirm resolution is recommended. She has also hepatic steatosis and hepatomegaly and mild splenomegaly, sigmoid diverticulosis. PHYSICAL EXAMINATION: GENERAL: When I examined her, she looked well and was clearly in no apparent respiratory distress, pale, but no jaundice, cyanosis, or thyromegaly. No jugular venous distension. No lower limb edema. VITAL SIGNS: Her heart rate was 88, blood pressure 137/69, temperature was 99, respiratory rate was 22 and oxygen saturation was 96% on room air. HEAD, EYES, EARS, NOSE AND THROAT: Showed normocephalic, atraumatic. NECK: Supple. HEART: Showed normal first and second heart sounds. No gallop, rub or murmur. CHEST: Shows central trachea, equal bilateral chest expansion, air entry, vesicular sounds with crepitation mostly in the left side. ABDOMEN: Distended, soft, nontender. NEUROLOGIC: She was sleepy, but arousable. All cranial nerves intact. She moves extremities without difficulty. She ambulates without assistance or assistive devices. Her intake over the last 24 hours was 3860, output was 1900. LABORATORY DATA: As of this morning showed a white cell count 5600, hemoglobin 8.9, hematocrit 27.3, MCV 83 and platelet count of 153,000. Her chemistry showed a serum sodium 138, potassium 3.6, chloride 102, bicarbonate 30, anion gap of 6, BUN 8, creatinine 0.8, estimated GFR was 72 mL per minute. Her glucose 148, calcium was 9.1. Total bilirubin, AST, ALT, alkaline phosphatase were normal. Total protein was 6.7, albumin was 2.6. ASSESSMENT: 1. Community-acquired pneumonia for which she is now on IV ceftriaxone and oral Zithromax and getting better slowly. Her chest pain has largely subsided. Cough is much improved. 2. The patient has multiple other medical problems including: A. Hypertension. B. Type 2 diabetes mellitus. C. Hyperlipidemia. D. Chronic back pain. E. Hypothyroidism. F. Osteoarthritis. G. History of nephrolithiasis. PLAN: To continue with IV antibiotic and Zithromax. Continue with DVT prophylaxis. Continue with incentive spirometry. Continue with Tessalon Perles as needed and if she will evaluate her again tomorrow. i have emphasized that the patient needs to get out of the bed, much as she can and also use incentive spirometry at least once every hour and hopefully she can be discharged home tomorrow on oral antibiotic. EMMY LEDESMA MD DR: DAMASO/howie JOB#: [id number] / [id number]
[2018-07-28 15:31] VITALS: BP 168/76
[2018-07-28] MEDS: MULTIVITAMIN with MINERAL TABLET. PO SCH (17:09)
[2018-07-28] MEDS: ACETAMINOPHEN 325 MG TABLET PO PRN ×2 (17:11→23:11)
[2018-07-28 19:45] VITALS: BP 154/80
[2018-07-28] MEDS: traZODone 50 MG TABLET. PO SCH (20:48)
[2018-07-28] MEDS: MONTELUKAST 10 MG TABLET. PO SCH (20:49)
[2018-07-28] MEDS: CETIRIZINE HCL 10 MG TABLET PO SCH (20:49)
[2018-07-28] MEDS: AZITHROMYCIN 250 MG TABLET. PO SCH (20:49)
[2018-07-28] MEDS ORDERED: FERROUS SULFATE 325 MG TABLET. PO SCH (21:00)
[2018-07-28] MEDS: NYSTATIN TOPICAL POWDER 15GM BOTTLE. TP SCH (21:00)
[2018-07-28 23:39] VITALS: BP 135/76
[2018-07-29] MEDS: LORazepam 1 MG TABLET PO PRN ×2 (01:46→15:23)
[2018-07-29] MEDS: IBUPROFEN 600 MG TABLET. PO PRN ×3 (01:46→21:17)
[2018-07-29] MEDS: IPRATRPIUM/ALBUTEROL 0.5/2.5MG 3 ML NEBU. NEB SCH ×3 (04:45→16:00)
[2018-07-29 06:43] VITALS: BP 150/74
[2018-07-29] MEDS: NYSTATIN TOPICAL POWDER 15GM BOTTLE. TP SCH ×2 (09:00→21:00)
[2018-07-29] MEDS: MULTIVITAMIN with MINERAL TABLET. PO SCH (09:04)
[2018-07-29] MEDS: ENOXAPARIN 40 MG/0.4 ML SYRINGE. SQ SCH ×2 (09:04→21:18)
[2018-07-29] MEDS: LACTOBACILLUS RHAMNOSUS GG 1 CAPSULE. PO SCH ×2 (09:05→21:17)
[2018-07-29] MEDS: THYROID,PORK 60 MG TABLET PO SCH (09:05)
[2018-07-29] MEDS: BENZONATATE 100 MG CAPSULE. PO SCH ×3 (09:05→21:17)
[2018-07-29] MEDS: hydroCHLOROthiazide 12.5 MG CAPSULE PO SCH (09:05)
[2018-07-29] MEDS: LOSARTAN 50 MG TABLET. PO SCH (09:05)
[2018-07-29] MEDS: PANTOPRAZOLE 40 MG TABLET. PO SCH (09:05)
[2018-07-29] MEDS: INSULIN LISPRO 300 UNITS/3 ML INSULN.PEN. SQ SCH ×4 (09:18→17:16)
[2018-07-29 11:11] VITALS: BP 155/78
[2018-07-29] MEDS: ACETAMINOPHEN 325 MG TABLET PO PRN ×2 (12:38→21:18)
[2018-07-29] MEDS ORDERED: TEMAZEPAM 15 MG CAPSULE PO ONE (12:45)
--- NOTE | 2018-07-29 13:21 | RAD ---
CT study of the maxillofacial bones without contrast-CT study of the paranasal sinuses Clinical indications: Severe headache and congestion. TECHNIQUE: Noncontrast helical CT scanning of the maxillofacial bones and paranasal sinuses was performed. Multiplanar 2-D reconstructions were generated. PQRS compliance Statement One or more of the following individualized dose reduction techniques were utilized for this study: 1. Automated exposure control 2. Adjustment of the mA and/or kV according to patient size 3. Use of iterative reconstruction technique COMPARISON: None available. FINDINGS: The maxillary and ethmoid and frontal sinuses are clear no air-fluid levels are there is a mucous retention cyst of the floor of the right sphenoid sinus which measures about 1 cm in size. No osteolytic process is evident. There is moderate nasal septal deviation with the convexity pointed towards the right side. The infundibular canal of the ostiomeatal complex of both maxillary sinuses is patent. There is moderate mucosal thickening of the middle and inferior turbinates bilaterally. No soft tissue mass or polyp of the nasal passageway is evident. The adenoids are not abnormally thickened. IMPRESSION: 1 cm mucous retention cyst of the right sphenoid sinus. Otherwise, the paranasal sinuses are clear without air-fluid levels. Moderate nasal passageway congestion. Electronically signed by: Chris Keys MD (07/29/2018 1:18 PM) [facility]
[2018-07-29] MEDS: diphenhydrAMINE HCL 25 MG CAPSULE PO ONE (17:16)
[2018-07-29] MEDS: BUDESONIDE 0.5 MG/2 ML NEBU NEB SCH (19:31)
[2018-07-29 20:36] VITALS: BP 149/80
[2018-07-29] MEDS: methylPREDNISolone SOD SUCC PF 40 MG/ML VIAL. IV SCH (21:16)
[2018-07-29] MEDS: CETIRIZINE HCL 10 MG TABLET PO SCH (21:17)
[2018-07-29] MEDS: MONTELUKAST 10 MG TABLET. PO SCH (21:17)
[2018-07-29] MEDS: AZITHROMYCIN 250 MG TABLET. PO SCH (21:17)
[2018-07-29] MEDS: traZODone 50 MG TABLET. PO SCH (21:18)
[2018-07-30 00:06] VITALS: BP 152/84
[2018-07-30] MEDS: diphenhydrAMINE HCL 25 MG CAPSULE PO ONE (00:15)
[2018-07-30] MEDS: IPRATRPIUM/ALBUTEROL 0.5/2.5MG 3 ML NEBU. NEB SCH ×5 (00:16→10:55)
--- NOTE | 2018-07-30 03:57 | PN ---
DATE: 07/29/2018 SUBJECTIVE: The patient is sitting propped up in bed, in no apparent distress. However, she is complaining that she has not been able to sleep and was insisting that she wanted something to sleep immediately now. I did start her on trazodone last night at 50 mg. She also has Ativan together with a muscle relaxant. However, according to her, she has not slept at all and basically insisting that she wants something to be done immediately, so we wrote a prescription for temazepam 15 mg. I did speak with Dr. Gonsales, the air tool operator documentation clerk regarding the finding on her CT scan of the chest and abdomen, which showed worsening of her infiltrate, although she seemed to be clinically much improved. Her heart rate is much better. She is afebrile. Her oxygen saturation was 96% on room air. She is not coughing when we are out there as she used to be when she came in earlier on and her voice is much better now. We recommended starting her on Pulmicort, Solu-Medrol, and increase her frequency of her breathing treatment. We have already asked her to do the incentive spirometry every hour and we recommended that she should move around instead of sitting in the bed ____ increase the atelectasis. PHYSICAL EXAMINATION: GENERAL: When I saw her this morning, she was resting slightly propped up in no apparent respiratory distress. There was no pallor, jaundice, cyanosis, or thyromegaly. No jugular venous distension. No lower limb edema. VITAL SIGNS: Her heart rate was 100, blood pressure 155/78, temperature was 98.4, respiratory rate was 18, and oxygen saturation was 96% on room air. HEAD, EYES, EARS, NOSE, AND THROAT: Showed normocephalic, atraumatic. NECK: Supple. HEART: Showed normal first and second heart sounds with no gallop, rub, or murmur. CHEST: Showed central trachea, equal bilateral expansion, air entry, vesicular breath sounds with crepitation mostly on the left side, although there are some crepitations on the right. Very few scattered rhonchi mostly on the left side. ABDOMEN: Distended, soft, nontender. NEUROLOGIC: She was awake, alert, responding appropriately. All her cranial nerves intact. She moves extremities without difficulty. She ambulates without assistance or assistive devices. As she complained of severe headache and sinus congestion, we did a CT scan of the paranasal sinuses, the result of which is still pending at the time of this dictation. Her lab work this morning showed her white cell count was 5600, hemoglobin 8.9, hematocrit 27.3, MCV 83, and platelet count of 153,000. Her chemistry showed serum sodium 138, potassium 3.6, chloride 102, bicarbonate 30, anion gap of 6, BUN 8, creatinine was 0.8, estimated GFR was 72 mL per minute. Her glucose 148, calcium was 9.1. Total bilirubin, AST, ALT, alkaline phosphatase were normal. Total protein was 6.7, albumin was 2.6. Her blood cultures are so far negative after 3 days. Her urine culture showed growth of Klebsiella pneumoniae, is actually sensitive to ceftriaxone, although these are only 25-50,000 colony-forming units per mL. ASSESSMENT AND PLAN: 1. In summary, this is a 62-year-old female patient who was admitted with cough, shortness of breath, and yellowish sputum together with x-ray showing left lower lobe pneumonia. She was treated with community-acquired pneumonia protocol and she continues to be on IV ceftriaxone and Zithromax. Her chest pain has completely resolved. The cough is much less. However, the patient continued to complain of insomnia because of cough. 2. The patient has multiple other medical problems including: A. Hypertension. B. Type 2 diabetes mellitus. C. Hyperlipidemia. D. Chronic back pain. E. Hypothyroidism. F. Osteoarthritis. G. History of nephrolithiasis, although her most recent CT scan of the abdomen showed no evidence of any renal stones or hydronephrosis. PLAN: My plan is to continue the IV antibiotic in the form of Rocephin and Zithromax. Continue with DVT prophylaxis. Continue with incentive spirometry. I added Solu-Medrol 40 mg IV twice a day and Pulmicort 0.5 mg 2 mL by nebulizer twice a day, increase her bronchodilator to every 4 hours. I did reluctantly write an order for temazepam today as I tried to convince her to take it at nighttime was a better option. EMMY LEDESMA MD DR: DAMASO/howie JOB#: [id number] / [id number]
[2018-07-30 05:50] VITALS: BP 123/73
[2018-07-30 06:24] LABS: BASO % 0 % (0-3); EOS % 1 % (0-3); HEMATOCRIT 28.8 % (36.0-47.0); HEMOGLOBIN 9.3 g/dL (12.0-15.5); LYMPH # 0.6 x10^3/uL (1.0-4.8); LYMPH % 11 % (24-48); MEAN CORPUSCULAR HEMOGLOBIN 27 pg (25-35); MEAN CORPUSCULAR HGB CONC 32 g/dL (31-37); MEAN CORPUSCULAR VOLUME 84 fL (79-100); MONO # 0.2 x10^3/uL (0.0-1.1); MONO % 4 % (0-9); NEUT # 4.7 x10^3uL (1.8-7.7); NEUT % 84 % (31-73); PLATELET COUNT 210 x10^3/uL (140-400); RED BLOOD COUNT 3.42 x10^6/uL (3.50-5.40); RED CELL DISTRIBUTION WIDTH 14.7 % (11.5-14.5); WHITE BLOOD COUNT 5.6 x10^3/uL (4.0-11.0)
[2018-07-30 06:44] LABS: ALBUMIN 2.7 g/dL (3.4-5.0); ALBUMIN/GLOBULIN RATIO 0.6 (1.0-1.7); CALCIUM 9.4 mg/dL (8.5-10.1); POTASSIUM 4.3 mmol/L (3.5-5.1); TOTAL BILIRUBIN 0.3 mg/dL (0.2-1.0); TOTAL PROTEIN 7.2 g/dL (6.4-8.2)
[2018-07-30 08:04] LABS: % BANDS 10 % (0-9); % BASOS 0 % (0-3); % EOS 3 % (0-5); % LYMPHS 12 % (24-48); % MONOS 2 % (0-10); % SEGS 73 % (35-66); PLT ESTIMATE ADEQUATE (ADEQUATE); TOXIC GRANULATION SLIGHT
[2018-07-30] MEDS: LOSARTAN 50 MG TABLET. PO SCH (08:58)
[2018-07-30] MEDS: PANTOPRAZOLE 40 MG TABLET. PO SCH (08:58)
[2018-07-30] MEDS: hydroCHLOROthiazide 12.5 MG CAPSULE PO SCH (08:58)
[2018-07-30] MEDS: LACTOBACILLUS RHAMNOSUS GG 1 CAPSULE. PO SCH (08:58)
[2018-07-30] MEDS: BENZONATATE 100 MG CAPSULE. PO SCH (08:59)
[2018-07-30] MEDS: ENOXAPARIN 40 MG/0.4 ML SYRINGE. SQ SCH (08:59)
[2018-07-30] MEDS: NYSTATIN TOPICAL POWDER 15GM BOTTLE. TP SCH (09:00)
[2018-07-30] MEDS: methylPREDNISolone SOD SUCC PF 40 MG/ML VIAL. IV SCH (09:00)
[2018-07-30] MEDS: INSULIN LISPRO 300 UNITS/3 ML INSULN.PEN. SQ SCH ×2 (09:05→12:28)
[2018-07-30] MEDS: THYROID,PORK 60 MG TABLET PO SCH (09:05)
[2018-07-30] MEDS: BUDESONIDE 0.5 MG/2 ML NEBU NEB SCH (10:55)
[2018-07-30 11:25] VITALS: BP 140/79
[2018-07-30] MEDS ORDERED: CEFD300C PO (11:59)
[2018-07-30] MEDS ORDERED: AZIT250T PO (11:59)
--- NOTE | 2018-07-31 01:44 | DS ---
DATE OF DISCHARGE: 07/30/2018 The patient is sitting slightly propped up in bed today stating that she has done very well yesterday during daytime and nighttime. Has had no chest pain. The cough is much less and has been up and about. PHYSICAL EXAMINATION: GENERAL: When I examined her, she looked well and was clearly in no apparent respiratory distress, slightly pale, but no jaundice, cyanosis, or thyromegaly. No jugular venous distention. No limb edema. VITAL SIGNS: Her heart rate was 70, blood pressure was 123/73, temperature was 97.7, respiratory rate was 20, and oxygen saturation was 97% on room air. HEAD, EYES, EARS, NOSE AND THROAT: Showed normocephalic, atraumatic. NECK: Supple. HEART: Showed normal first and second heart sounds. No gallop, rub, or murmur. CHEST: Showed central trachea, equal bilateral expansion, air entry, vesicular sounds. Crepitation is mostly on the left side posteriorly. I could not appreciate any rhonchi. ABDOMEN: Distended, soft, nontender. NEUROLOGIC: She is awake, alert, responding appropriately. All cranial nerves intact. She moves extremities without difficulty. She ambulates without assistance or assistive devices. Her intake was 2400, output was 600. LABORATORY DATA: Her lab work this morning showed a white cell count 5600, hemoglobin 9.3, hematocrit 28.8, MCV 84, and platelet count of 210,000 with normal manual differential. Her serum sodium was 135, potassium 4.3, chloride 100, bicarbonate 24, anion gap of 11, BUN 14, creatinine 1, estimated GFR was 56 mL per minute. Her glucose was high at 364. Magnesium was 9.4. Total bilirubin, AST, ALT, alkaline phosphatase slightly elevated. Total protein was 7.2, albumin 2.7. Her influenza A and B were negative. Urinalysis was essentially unremarkable, it showed 5-10 wbc's. Her prothrombin time, INR normal, aPTT was normal. D-dimer was slightly elevated. Her 2 sets of blood cultures were negative; however, her urine has grown Klebsiella pneumoniae; however, there was only 25-50,000 colony forming units per mL, sensitive to cefdinir. She did have a CT angio because of elevated D-dimer, which showed that she has left lower lobe infiltrate suggesting pneumonia, but there is no evidence of pulmonary emboli. We did also Doppler ultrasound which showed no evidence of right or left lower extremity deep vein thrombosis. Given that she has history of kidney stones before and her pain was somewhat also around the left flank area, CT scan showed that there is no evidence of nephrolithiasis or hydronephrosis. There is nonspecific perinephric stranding. She has sigmoid diverticulosis and hepatic steatosis. At that time, the CT scan showed interval increase in her partially consolidated left greater than right lower lobe pneumonia with superimposed ground glass and nodular infiltrate; however, the patient is actually feeling much improved today and therefore, a decision was made to discharge her to continue on her Zithromax 250 mg once a day for 7 days and cefdinir 300 mg twice a day for 7 days. She has also gone on Medrol Dosepak as well as albuterol sulfate or Ventolin inhaler 2 puffs every 4 hours as needed, cyclobenzaprine 10 mg 3 times a day, ferrous sulfate 325 mg Monday, Monday, Monday, Monday, fexofenadine for Amparo 60 mg once a day, multivitamin 1 tablet once a day, Benicar/hydrochlorothiazide 40/12.5 one tablet once a day, Protonix 40 mg once a day, sitagliptin/metformin for Janumet one tablet once a day, [place] Thyroid 60 mg once a day and Accolate 20 mg twice a day. FINAL DISCHARGE DIAGNOSES: 1. Community-acquired pneumonia. 2. Hypertension. 3. Type 2 diabetes mellitus. 4. Hyperlipidemia. 5. Chronic back pain. 6. Hypothyroidism. 7. Osteoarthritis. 8. History of nephrolithiasis. CT scan, however, did not show any evidence of stones or hydronephrosis. EMMY LEDESMA MD DR: DAMASO/howie JOB#: [id number] / [id number]
== END 2018-07-30 14:40 | disposition home or self-care (01) | DRG 195 ==
LOC: ER 22:27 → 1 SOUTH 07-26 00:30
PROVIDERS: ADMIT Internal Medicine; ATTEND Internal Medicine
DX: J18.1 Lobar pneumonia, unspecified organism (principal); E03.9 Hypothyroidism, unspecified; E11.9 Type 2 diabetes mellitus without complications; E78.5 Hyperlipidemia, unspecified; G47.00 Insomnia, unspecified; G89.29 Other chronic pain; I10 Essential (primary) hypertension; K57.30 Diverticulosis of large intestine without perforation or abscess without bleeding; F41.9 Anxiety disorder, unspecified; K76.0 Fatty (change of) liver, not elsewhere classified; M19.90 Unspecified osteoarthritis, unspecified site; N20.0 Calculus of kidney; Z80.8 Family history of malignant neoplasm of other organs or systems; Z82.3 Family history of stroke; Z82.49 Family history of ischemic heart disease and other diseases of the circulatory system; Z87.442 Personal history of urinary calculi; Z88.2 Allergy status to sulfonamides; Z88.8 Allergy status to other drugs, medicaments and biological substances; Z91.040 Latex allergy status; Z79.899 Other long term (current) drug therapy; Z90.49 Acquired absence of other specified parts of digestive tract
CPT/HCPCS: 36415; 70486; 71046; 71275; 74176; 80048; 80053; 80076; 81001; 82550; 82947; 83605; 83690; 83735; 83880; 84443; 84484; 85007; 85025; 85027; 85379; 85610; 85651; 85730; 87040; 87086; 87186; 87804; 93005; 93970; 94640; 96365; 96372; 96375; G0238; J0456; J0696; J1650; J1815; J1885; J2270; J2920; J3475; J7120; J7620; J7626; Q0163; Q9967; 99285-25

== ENCOUNTER 2020-01-21 06:48 | Emergency (ER) | payer MEDICARE, BC ==
[~2020-01-21] VITALS: Ht 160 cm; Wt 93.1 kg
[~2020-01-21 06:48] MED LIST changes: +AZIT250T PO; +CEFD300C PO; +SITA1TBM4 PO
--- NOTE | 2020-01-21 07:09 | PHYS DOC ---
Past History Past Medical History: Anxiety, Bronchitis, Diabetes, Hypertension, Kidney Stones Past Surgical History: Cholecystectomy, Other Alcohol Use: Occasionally Drug Use: None General Adult EDM: Chief Complaint: FLANK PAIN HPI: HPI: Patient is a 64 year old female who arrives with a chief complaint of bilateral flank pain. Pain began overnight and is 10/10 and is located in both flanks. Patient denies radiation of pain or significant abdominal pain but said that with palpation her abdomen she does become nauseous. Pain is a sharp stabbing pain. Patient has a history of kidney stones and pain is similar to that. Patient denies any fever, chills, cough or shortness of breath. Patient denies any diarrhea. Patient denies any radiation of the pain. Review of Systems: Review of Systems: Constitutional: Denies fever or chills Eyes: Denies change in visual acuity HENT: Denies nasal congestion or sore throat Respiratory: Denies cough or shortness of breath Cardiovascular: Denies chest pain or edema GI: Denies abdominal pain, BLOODY STOOLS OR DIARRHEA, BUT HAS nausea AND vomiting : Denies dysuria Musculoskeletal: COMPLAINS OF BILATERAL FLANK PAIN BUT NO JOINT PAIN Integument: Denies rash Neurologic: Denies headache, focal weakness or sensory changes Endocrine: Denies polyuria or polydipsia Lymphatic: Denies swollen glands Psychiatric: Denies depression or anxiety Current Medications: Current Meds: Current Medications Medications (Trade) Dose Ordered Sig/Kelton Start Time Stop Time Status Last Admin Dose Admin Ondansetron HCl (Zofran) 4 mg 1X ONCE 01/21/20 07:15 01/21/20 07:16 Sodium Chloride 1,000 ml @ 1,000 mls/hr 1X ONCE 01/21/20 07:15 01/21/20 08:14 Allergies: Allergies: Allergies Coded Allergies Type Severity Reaction Last Updated Verified latex Allergy Severe Rash 10/17/13 Yes fentanyl Allergy Intermediate 10/17/13 Yes sulfamethoxazole Allergy Unknown 07/25/18 Yes trimethoprim Allergy Unknown 07/25/18 Yes Physical Exam: PE: Constitutional: Well developed, well nourished, mild distress, non-toxic appearance. [] HENT: Normocephalic, atraumatic, bilateral external ears normal, no trismus nose normal. [] Eyes: PERRLA, EOMI, conjunctiva normal, no discharge. [] Neck: Normal range of motion, no tenderness, supple, no stridor. [] Cardiovascular:Heart rate regular rhythm, peripheral pulses intact, brusher less than 2 seconds Lungs & Thorax: Bilateral breath sounds clear, no respiratory distress Abdomen: , soft, no tenderness, no masses, no pulsatile masses. [] Skin: Warm, dry, no erythema, no rash. [] Back:bilateral cva tenderness Extremities: No tenderness, no cyanosis, no clubbing, ROM intact, no edema. [] Neurologic: Alert and oriented X 3, normal motor function, normal sensory function, no focal deficits noted. [] Psychologic: Affect normal, judgement normal, mood normal. [] Current Patient Data: Labs: Laboratory Tests Test 01/21/20 07:19 01/21/20 08:53 White Blood Count 11.4 x10^3/uL Red Blood Count 4.27 x10^6/uL Hemoglobin 11.5 g/dL Hematocrit 36.2 % Mean Corpuscular Volume 85 fL Mean Corpuscular Hemoglobin 27 pg Mean Corpuscular Hemoglobin Concent 32 g/dL Red Cell Distribution Width 15.3 % Platelet Count 242 x10^3/uL Neutrophils (%) (Auto) 80 % Lymphocytes (%) (Auto) 12 % Monocytes (%) (Auto) 6 % Eosinophils (%) (Auto) 2 % Basophils (%) (Auto) 1 % Neutrophils # (Auto) 9.1 x10^3uL Lymphocytes # (Auto) 1.4 x10^3/uL Monocytes # (Auto) 0.7 x10^3/uL Eosinophils # (Auto) 0.2 x10^3/uL Basophils # (Auto) 0.1 x10^3/uL Sodium Level 138 mmol/L Potassium Level 3.7 mmol/L Chloride Level 99 mmol/L Carbon Dioxide Level 21 mmol/L Anion Gap 18 Blood Urea Nitrogen 21 mg/dL Creatinine 1.2 mg/dL Estimated GFR (Cockcroft-Gault) 45.1 BUN/Creatinine Ratio 18 Glucose Level 210 mg/dL Calcium Level 9.7 mg/dL Total Bilirubin 0.3 mg/dL Aspartate Amino Transf (AST/SGOT) 27 U/L Alanine Aminotransferase (ALT/SGPT) 36 U/L Alkaline Phosphatase 110 U/L Total Protein 7.8 g/dL Albumin 3.7 g/dL Albumin/Globulin Ratio 0.9 Lipase 398 U/L Urine Collection Type Unknown Urine Color Yellow Urine Clarity Clear Urine pH 5.5 Urine Specific [place] >=1.030 Urine Protein 30 mg/dl Urine Glucose (UA) Neg mg/dL Urine Ketones (Stick) Trace mg/dL Urine Blood Neg Urine Nitrite Neg Urine Bilirubin Neg Urine Urobilinogen Dipstick 0.2 mg/dL Urine Leukocyte Esterase Neg Urine RBC 0 /HPF Urine WBC 1-4 /HPF Urine Squamous Epithelial Cells Few /LPF Urine Bacteria 0 /HPF Urine Mucus Slight /LPF Current Medications Medications (Trade) Dose Ordered Sig/Kelton Route PRN Reason Start Time Stop Time Status Last Admin Dose Admin Ondansetron HCl (Zofran) 4 mg 1X ONCE IVP 01/21/20 07:15 01/21/20 07:16 DC 01/21/20 07:24 Sodium Chloride 1,000 ml @ 1,000 mls/hr 1X ONCE IV 01/21/20 07:15 01/21/20 08:14 DC 01/21/20 07:24 Ketorolac Tromethamine (Toradol 15mg Vial) 15 mg 1X ONCE IVP 01/21/20 07:15 01/21/20 07:28 DC 01/21/20 07:31 Morphine Sulfate (Morphine 4mg Syringe) 4 mg 1X ONCE IV 01/21/20 07:15 01/21/20 07:28 DC 01/21/20 07:32 Vital Signs: Vital Signs Date Time Temp Pulse Resp B/P (MAP) Pulse Ox O2 Delivery O2 Flow Rate FiO2 01/21/20 07:32 16 99 EKG: EKG: [] Radiology/Procedures: Radiology/Procedures: [][address] [address] IMAGING REPORT Signed PATIENT: NASEEM OSULLIVAN ACCOUNT: [id number] : 1955 LOCATION: ER AGE: 64 SEX: F EXAM STATUS: REG ER ORD. PHYSICIAN: FELA SANTOS MD REASON: FLANK PAIN, HX OF STONES & LITHOTRIPSY PROCEDURE: CT ABDOMEN PELVIS WO CONTRAST EXAM: CT Abdomen and Pelvis without IV contrast INDICATION: Reason: FLANK PAIN, HX OF STONES LITHOTRIPSY / Spl. Instructions: / History: TECHNIQUE: Multi-detector row CT images were acquired from the lung bases through the abdomen and pelvis without the use of IV contrast. Sagittal and coronal images were acquired from the transaxial data. All CT scans performed at this facility utilize dose optimization techniques as appropriate to the exam, including the following: Automated exposure control and adjustment of the mA and/or KV according to patient size (this includes techniques or standardized protocols for targeted exams where dose is indication/reason for exam). ORAL CONTRAST: None COMPARISON: 07/27/[address] FINDINGS: The absence of IV contrast limits evaluation of soft tissue pathology. LOWER CHEST: Unremarkable LIVER: Subtle undulation to the hepatic contour is nonspecific. No hepatic masses. BILIARY SYSTEM: Cholecystectomy. Bile ducts are not dilated. PANCREAS: Unremarkable SPLEEN: Unremarkable ADRENALS: Unremarkable KIDNEYS & URETERS: No radiopaque stones in the urinary tract identified. No hydronephrosis. Minimal Renal soft tissue stranding is similar to prior. BLADDER: Unremarkable REPRODUCTIVE ORGANS: Calcifications in the uterine fundus could represent a calcified fibroid. GASTROINTESTINAL: There is wall thickening in the jejunum and distal duodenum with fluid distention more distally. There is a gradual transition to more normal bowel caliber in the ileum and there is no significant mesenteric edema. The large bowel shows scattered colonic diverticuli and is partly interposed over the right hepatic lobe. No findings of bowel obstruction. The appendix is normal. MESENTERY/PERITONEUM/RETROPERITONEUM: Unremarkable VASCULAR: Unremarkable LYMPH NODES: No adenopathy OSSEOUS & SOFT TISSUES: Multilevel lumbar spinal degenerative spondylosis with disc and facet hypertrophy, likely resulting in at least moderate central canal stenosis of lumbar spine. There is mild rightward convexity scoliosis.. IMPRESSION: 1. No residual stone disease or hydronephrosis status post previous lithotripsy. 2. Edema in the small bowel proximally, query angioedema. No evidence of obstruction or perforation. 3. Lumbar spinal degenerative spondylosis. Correlate for any relevance to flank pain. Electronically signed by: Alejandra Capps MD (01/21/2020 8:48 AM) [id number] DICTATED AND SIGNED BY: ALEJANDRA CAPPS MD DATE: 01/21/20 0848 CC: FELA SANTOS MD; NOEMY MONGE MD ~ Heart Score: Risk Factors: Risk Factors: DM, Current or recent (<one month) smoker, HTN, HLP, family history of CAD, obesity. Risk Scores: Score 0 - 3: 2.5% MACE over next 6 weeks - Discharge Home Score 4 - 6: 20.3% MACE over next 6 weeks - Admit for Clinical Observation Score 7 - 10: 72.7% MACE over next 6 weeks - Early Invasive Strategies Course & Med Decision Making: Course & Med Decision Making Pertinent Labs and Imaging studies reviewed. (See chart for details) [][address] [address] IMAGING REPORT Signed PATIENT: NASEEM OSULLIVAN ACCOUNT: [id number] : 1955 LOCATION: ER AGE: 64 SEX: F EXAM STATUS: REG ER ORD. PHYSICIAN: FELA SANTOS MD REASON: FLANK PAIN, HX OF STONES & LITHOTRIPSY PROCEDURE: CT ABDOMEN PELVIS WO CONTRAST EXAM: CT Abdomen and Pelvis without IV contrast INDICATION: Reason: FLANK PAIN, HX OF STONES LITHOTRIPSY / Spl. Instructions: / History: TECHNIQUE: Multi-detector row CT images were acquired from the lung bases through the abdomen and pelvis without the use of IV contrast. Sagittal and coronal images were acquired from the transaxial data. All CT scans performed at this facility utilize dose optimization techniques as appropriate to the exam, including the following: Automated exposure control and adjustment of the mA and/or KV according to patient size (this includes techniques or standardized protocols for targeted exams where dose is indication/reason for exam). ORAL CONTRAST: None COMPARISON: 07/27/[address] FINDINGS: The absence of IV contrast limits evaluation of soft tissue pathology. LOWER CHEST: Unremarkable LIVER: Subtle undulation to the hepatic contour is nonspecific. No hepatic masses. BILIARY SYSTEM: Cholecystectomy. Bile ducts are not dilated. PANCREAS: Unremarkable SPLEEN: Unremarkable ADRENALS: Unremarkable KIDNEYS & URETERS: No radiopaque stones in the urinary tract identified. No hydronephrosis. Minimal Renal soft tissue stranding is similar to prior. BLADDER: Unremarkable REPRODUCTIVE ORGANS: Calcifications in the uterine fundus could represent a calcified fibroid. GASTROINTESTINAL: There is wall thickening in the jejunum and distal duodenum with fluid distention more distally. There is a gradual transition to more normal bowel caliber in the ileum and there is no significant mesenteric edema. The large bowel shows scattered colonic diverticuli and is partly interposed over the right hepatic lobe. No findings of bowel obstruction. The appendix is normal. MESENTERY/PERITONEUM/RETROPERITONEUM: Unremarkable VASCULAR: Unremarkable LYMPH NODES: No adenopathy OSSEOUS & SOFT TISSUES: Multilevel lumbar spinal degenerative spondylosis with disc and facet hypertrophy, likely resulting in at least moderate central canal stenosis of lumbar spine. There is mild rightward convexity scoliosis.. IMPRESSION: 1. No residual stone disease or hydronephrosis status post previous lithotripsy. 2. Edema in the small bowel proximally, query angioedema. No evidence of obstruction or perforation. 3. Lumbar spinal degenerative spondylosis. Correlate for any relevance to flank pain. Electronically signed by: Alejandra Capps MD (01/21/2020 8:48 AM) [id number] DICTATED AND SIGNED BY: ALEJANDRA CAPPS MD DATE: 01/21/20 0848 CC: FELA SANTOS MD; NOEMY MONGE MD ~ 64-year-old female presents with bilateral flank pain as well as nausea vomiting. Patient underwent a CT to rule out kidney stones. No evidence of ureteral stones. Patient does have some mild inflammation of her proximal small bowel. Abdominal exam is soft and nontender, nonsurgical. Doubt surgical emergency. Patient reassessed multiple times with the last one being at 10:20 AM and feels much better. Repeat abdominal exam is soft and nontender. Discussed with patient the information of small bowel and after prolonged discussion she recently started a new meds 4 months ago has had some GI issues since then I discussed this may be allergic reaction to that medication. Back pain may be caused by her degenerative joint disease in her back. Patient has no signs of cauda equina. Doubt surgical emergency and abdomen. Discussed with patient that she will give prescription for pain meds and nausea meds and given follow-up with GI. Patient requesting Toradol instead of hydrocodone which we will oblige Dragon Disclaimer: Dragon Disclaimer: This electronic medical record was generated, in whole or in part, using a voice recognition dictation system. Departure Departure: Impression: Primary Impression: Bilateral flank pain Additional Impressions: Vomiting Inflammation of small intestine Disposition: 01 DC HOME SELF CARE/HOMELESS Condition: STABLE Referrals: NOEMY MONGE MD (PCP) FELA ALDANA MD 2-3 DAYS Patient Instructions: Back Pain, Adult, Nausea and Vomiting Additional Instructions: EMERGENCY DEPARTMENT GENERAL DISCHARGE INSTRUCTIONS THANK YOU for coming to [facility] Emergency Department (ED) today and trusting us with your care. We trust that you had a positive experience in our Emergency Department. If you wish to speak to the department Management you can contact the emergency department at YOUR FOLLOW UP INSTRUCTIONS ARE FOLLOWS: Do you have a private doctor? If you do not have a private doctor, please ask for a resource list of physicians or clinics that may be able to assist you with follow up care. The Emergency Physician has interpreted your x-rays. The X-ray specialist will also review them. If there is a change in the findings you will be notified in 48 hours when at all possible. A lab test or lab culture may have been done, your results will be reviewed and you will be notified if you need a change in treatment. ADDITIONAL INSTRUCTIONS AND INFORMATION Your care today has been supervised by a physician who is specially trained in emergency care. Many problems require more than one evaluation for a complete diagnosis and treatment. We recommend that you schedule your follow up appointment as recommended to ensure complete treatment of your illness or injury. If you are unable to obtain follow up care and continue to have a problem, or if your condition worsens we recommend that you return to the ED. We are not able to safely determine your condition over the phone nor are we able to give sound medical advice over the phone. For these safety reasons, if you call for medical advice we will ask you to come to the ED for further evaluation If you have any questions regarding these discharge instructions please call the ED at . SAFETY INFORMATION In the interest of safety, wellness, and injury prevention; we encourage you to wear your seatbelt, if you smoke; quit smoking, and we encourage your family to use protective helmet for bicycling and other sporting events that present an increased risk for head injury. IF YOUR SYMPTOMS WORSEN OR NEW SYMPTOMS DEVELOP, OR YOU HAVE CONCERNS ABOUT YOUR CONDITION; OR IF YOUR CONDITION WORSENS WHILE YOU ARE WAITING FOR YOUR FOLLOW UP APPOINTMENT; EITHER CONTACT YOUR PRIMARY CARE DOCTOR, THE PHYSICIAN WHOSE NAME AND NUMBER YOU WERE GIVEN, OR RETURN TO THE ED IMMEDIATELY. Scripts [Ketorolac] No Conflict Check 10 MG PO Q6-8HRS PRN for PAIN, #20 Prov: FELA SANTOS MD 01/21/20 [Tor] No Conflict Check Prov: FELA SANTOS MD 01/21/20 Ondansetron (ONDANSETRON ODT) 4 Mg Tab.rapdis 1 TAB PO PRN Q6-8HRS PRN for NAUSEA, #12 TAB Prov: FELA SANTOS MD 01/21/20 Hydrocodone Bit/Acetaminophen (NORCO 5-325 TABLET) 1 Each Tablet 1 TAB PO PRN Q6HRS PRN for PAIN, #12 TAB 0 Refills Prov: FELA SANTOS MD 01/21/20 FELA SANTOS MD Jan 21, 2020 07:09
[2020-01-21] MEDS ORDERED: IV NORMAL SALINE 1,000ML 1,000 ML IV ONE (07:15)
[2020-01-21] MEDS ORDERED: KETOROLAC 15 MG/ML VIAL. IVP ONE (07:15)
[2020-01-21] MEDS ORDERED: MORPHINE SULFATE 4 MG/ML DISP.SYRIN. IV ONE (07:15)
[2020-01-21] MEDS ORDERED: ONDANSETRON PF 4 MG/2 ML VIAL. IVP ONE (07:15)
[2020-01-21 07:39] LABS: BASO # 0.1 x10^3/uL (0.0-0.2); BASO % 1 % (0-3); EOS # 0.2 x10^3/uL (0.0-0.7); EOS % 2 % (0-3); HEMATOCRIT 36.2 % (36.0-47.0); HEMOGLOBIN 11.5 g/dL (12.0-15.5); LYMPH # 1.4 x10^3/uL (1.0-4.8); LYMPH % 12 % (24-48); MEAN CORPUSCULAR HEMOGLOBIN 27 pg (25-35); MEAN CORPUSCULAR HGB CONC 32 g/dL (31-37); MEAN CORPUSCULAR VOLUME 85 fL (79-100); MONO # 0.7 x10^3/uL (0.0-1.1); MONO % 6 % (0-9); NEUT # 9.1 x10^3uL (1.8-7.7); NEUT % 80 % (31-73); PLATELET COUNT 242 x10^3/uL (140-400); RED BLOOD COUNT 4.27 x10^6/uL (3.50-5.40); RED CELL DISTRIBUTION WIDTH 15.3 % (11.5-14.5); WHITE BLOOD COUNT 11.4 x10^3/uL (4.0-11.0)
[2020-01-21 07:45] LABS: CALCIUM 9.7 mg/dL (8.5-10.1); CREATININE 1.2 mg/dL (0.6-1.0); GFR 45.1; POTASSIUM 3.7 mmol/L (3.5-5.1)
[2020-01-21 07:51] LABS: ALBUMIN 3.7 g/dL (3.4-5.0); ALBUMIN/GLOBULIN RATIO 0.9 (1.0-1.7); TOTAL BILIRUBIN 0.3 mg/dL (0.2-1.0); TOTAL PROTEIN 7.8 g/dL (6.4-8.2)
--- NOTE | 2020-01-21 08:51 | RAD ---
EXAM: CT Abdomen and Pelvis without IV contrast INDICATION: Reason: FLANK PAIN, HX OF STONES LITHOTRIPSY / Spl. Instructions: / History: TECHNIQUE: Multi-detector row CT images were acquired from the lung bases through the abdomen and pelvis without the use of IV contrast. Sagittal and coronal images were acquired from the transaxial data. All CT scans performed at this facility utilize dose optimization techniques as appropriate to the exam, including the following: Automated exposure control and adjustment of the mA and/or KV according to patient size (this includes techniques or standardized protocols for targeted exams where dose is indication/reason for exam). ORAL CONTRAST: None COMPARISON: 07/27/[address] FINDINGS: The absence of IV contrast limits evaluation of soft tissue pathology. LOWER CHEST: Unremarkable LIVER: Subtle undulation to the hepatic contour is nonspecific. No hepatic masses. BILIARY SYSTEM: Cholecystectomy. Bile ducts are not dilated. PANCREAS: Unremarkable SPLEEN: Unremarkable ADRENALS: Unremarkable KIDNEYS & URETERS: No radiopaque stones in the urinary tract identified. No hydronephrosis. Minimal Renal soft tissue stranding is similar to prior. BLADDER: Unremarkable REPRODUCTIVE ORGANS: Calcifications in the uterine fundus could represent a calcified fibroid. GASTROINTESTINAL: There is wall thickening in the jejunum and distal duodenum with fluid distention more distally. There is a gradual transition to more normal bowel caliber in the ileum and there is no significant mesenteric edema. The large bowel shows scattered colonic diverticuli and is partly interposed over the right hepatic lobe. No findings of bowel obstruction. The appendix is normal. MESENTERY/PERITONEUM/RETROPERITONEUM: Unremarkable VASCULAR: Unremarkable LYMPH NODES: No adenopathy OSSEOUS & SOFT TISSUES: Multilevel lumbar spinal degenerative spondylosis with disc and facet hypertrophy, likely resulting in at least moderate central canal stenosis of lumbar spine. There is mild rightward convexity scoliosis.. IMPRESSION: 1. No residual stone disease or hydronephrosis status post previous lithotripsy. 2. Edema in the small bowel proximally, query angioedema. No evidence of obstruction or perforation. 3. Lumbar spinal degenerative spondylosis. Correlate for any relevance to flank pain. Electronically signed by: Nilda Capps MD (01/21/2020 8:48 AM) [id number]
[2020-01-21 10:05] LABS: BILIRUBIN,URINE NEG (NEG); CLARITY,URINE CLEAR; COLOR,URINE YELLOW; GLUCOSE,URINE NEG (NEG); NITRITE,URINE NEG (NEG); UROBILINOGEN,URINE 0.2 mg/dL (0.2 mg/dL)
[2020-01-21 10:06] LABS: BACTERIA,URINE 0 /HPF (0-FEW); RBC,URINE 0 /HPF (0-2); SQUAMOUS EPITHELIAL CELL,UR FEW /LPF
[2020-01-21] MEDS ORDERED: ONDA4TAB12 PO (10:33)
[2020-01-21] MEDS ORDERED: HYDR-3165 PO (10:33)
[2020-01-21] MEDS ORDERED: [UNRECOGNIZED DRUG - OTHER] (10:48)
[2020-01-21] MEDS ORDERED: KETOROLAC PO (10:48)
== END 2020-01-21 10:50 | disposition home or self-care (01) ==
LOC: ER 06:48
DX: K52.9 Noninfective gastroenteritis and colitis, unspecified (principal); R11.2 Nausea with vomiting, unspecified; F41.9 Anxiety disorder, unspecified; E11.9 Type 2 diabetes mellitus without complications; I10 Essential (primary) hypertension; Z90.49 Acquired absence of other specified parts of digestive tract; Z91.040 Latex allergy status; Z88.1 Allergy status to other antibiotic agents; Z88.2 Allergy status to sulfonamides; Z88.8 Allergy status to other drugs, medicaments and biological substances
CPT/HCPCS: 36415; 74176; 80053; 81001; 83690; 85025; 96361; 96374; 96375; 99284; J1885; J2270; J2405; J7030